=== PATIENT | male | born 1950 | race Caucasian/White ===

== ENCOUNTER 2021-08-23 16:54 | Observation (INO) | payer BC, SELFPAY ==
[2021-08-23] VITALS (32 sets, daily range): BP systolic 112–164; BP diastolic 58–76; PULSE 55–86; RESP 6–19; TEMP 36.6–36.8; O2SAT 95–100; BMI 31.2
--- NOTE | ~2021-08-23 | XR_ITS ---
EXAMINATION: XR chest 2V DATE: 08/23/2021 17:14 INDICATION: Generalized chest pain radiating to the neck TECHNIQUE: PA and lateral views of the chest are obtained. COMPARISON: None available FINDINGS: The lungs are free of acute opacities. There is no pleural effusion or pneumothorax. The ca rdiomediastinal silhouette is normal. There is mild thoracic spondylosis. IMPRESSION: 1. No acute cardiopulmonary abnormality. Reviewed, dictated and finalized at location F.
--- NOTE | 2021-08-23 16:57 | ECG_ITS ---
Measurements Intervals [place] Rate: 73 P: 48 MN: 189 QRS: 14 QRSD: 99 T: 21 QT: 390 QTc: 430 Interpretive Statements SINUS RHYTHM WITH SINUS ARRHYTHMIA WITHIN NORMAL LIMITS NO PREVIOUS ECG AVAILABLE FOR COMPARISON Electronically Signed On 08-24-2021 16:36:56 CDT by Kyle Muniz M.D.
--- NOTE | 2021-08-23 17:12 | ED.CHESTPAIN ---
HPI - Chest Pain General Chief Complaint: Chest Pain Stated Complaint: out of sorts, jaw pain Time Seen by Provider: 08/23/21 17:12 History of Present Illness HPI narrative: Patient is a 70-year-old male with history of hypertension, hyperlipidemia presenting to the emergency department for evaluation of chest pain and jaw pain. Patient states that while at work today, he noticed increasing chest pressure over the center of his chest with radiation into the lower jaw area, both sides of his jaw. He reports associated shortness of breath in conjunction with the pain, denies any nausea, vomiting, palpitations, diaphoresis. Patient denies any lightheadedness or dizziness. 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 Patient is a lifelong smoker. His father had a heart attack in his 50s. Patient has no previous history of myocardial infarction. He denies any cough or hemoptysis. He denies leg swelling or calf pain. Patient denies history of stress test in the past. He has been compliant with his medication which includes lisinopril, hydrochlorothiazide. Related Data Home Medications Medication Instructions Recorded Confirmed atorvastatin 40 mg tablet tablet 08/23/21 hydrochlorothiazide 50 mg tablet tablet 08/23/21 lisinopril 10 mg tablet tablet 08/23/21 08/23/21 Allergies Allergy/AdvReac Type Severity Reaction Status Date / Time No Known Allergies Allergy Verified 08/23/21 17:31 Review of Systems Review of Systems: CONSTITUTIONAL: Denies fever, chills, or sweats. ENT: Denies rhinorrhea, congestion, sore throat, or otalgia. CARDIOVASCULAR: Reports chest pain, denies palpitations, edema RESPIRATORY: Denies cough or dyspnea. Denies current dyspnea. GASTROINTESTINAL: Denies abdominal pain, nausea, vomiting, or diarrhea. GENITOURINARY: Denies dysuria or hematuria. SKIN: Denies rash or itching. MUSCULOSKELETAL: Denies back pain, joint pain, or myalgia. NEUROLOGIC: Denies headache, numbness, or weakness. [facility] Social History Social History (Updated 08/23/21 @ 17:31 by Starr Mcgill MD) Smoking status: Current every day smoker Alcohol intake: never Substance use: never Gender identity (if verbalized by the patient): Male Exam Narrative: GENERAL: Awake, alert, conversant HEAD: Normocephalic, atraumatic. EYES: PERRLA and EOMI. ENT: Nares clear, no rhinorrhea or epistaxis. Mucous membranes moist. NECK: Supple. CHEST: No respiratory distress, breathing even and non labored, no chest wall tenderness HEART: Regular rate, sinus rhythm ABDOMEN:Non distended, non tender EXTREMITIES: Normal range of motion. No edema. SKIN: Warm, dry, no rash. NEURO:No focal deficits. Alert and oriented x3 Course Vital Signs Vital signs: Vital Signs Temperature 36.8 C 08/23/21 16:58 Pulse Rate 75 08/23/21 16:58 Respiratory Rate 14 08/23/21 16:58 Blood Pressure 164/72 H 08/23/21 16:58 Pulse Oximetry 100 08/23/21 16:58 Temperature 36.8 C 08/23/21 16:58 Pulse Rate 71 08/23/21 17:03 Respiratory Rate 14 08/23/21 16:58 Blood Pressure 164/72 H 08/23/21 16:58 Pulse Oximetry 100 08/23/21 16:58 MDM - Chest Pain MDM Narrative Medical decision making narrative: Patient presenting for evaluation of intermittent chest pain radiating to both sides of the patient's jaw with associated dyspnea. Chest pain is present, but mild at the time of assessment. Patient with significant history and risk factors concerning for unstable angina. IV access obtained and labs are drawn. Patient was given aspirin, and pain resolved after administration of sublingual nitroglycerin. Patient with first troponin that is not elevated. Other labs are notable for mild anemia. Patient without ripping or tearing sensation to the left leg, back, does not seem consistent with PE or vascular pathology. Patient was given a dose of Lovenox in the ER after di
[2021-08-23 17:16] LABS: Basophils Percent Auto 0.4 % (0.2-1.2); Eosinophils Absolute Auto 0.2 K/mm3 (0-0.3); Eosinophils Percent Auto 1.8 % (0-4.4); Hematocrit 39.7 % (42.0-52.0); Hemoglobin 12.9 g/dL (14.0-18.0); Immature Granulocyte Percent A 1.1 % (0-0.5); Lymphocytes Absolute Auto 2.02 K/mm3 (0.9-3.2); Lymphocytes Percent Auto 22.2 % (18.3-44.2); Mean Corpuscular HGB Conc 32.5 g/dl (32-36); Mean Corpuscular Hemoglobin 30.1 pg (26-34); Mean Corpuscular Volume 92.5 fl (80-100); Mean Platelet Volume 8.8 fl (7.4-10.4); Monocytes Absolute Auto 0.9 K/mm3 (0.1-0.6); Monocytes Percent Auto 10.3 % (2.6-8.5); Neutrophils Absolute Auto 5.8 K/mm3 (1.3-6.7); Neutrophils Percent Auto 64.2 % (45.5-73.1); Platelet Count Result 299 k/mm3 (150-375); Red Blood Count 4.29 M/mm3 (4.6-6.20); Red Cell Distribution Width 13.7 % (11.5-14.5); White Blood Count 9.1 K/mm3 (4.5-10.0)
[2021-08-23 17:28] LABS: Partial Thromboplastin Time 24.1 SECONDS (22.3-36.8); Prothrombin Time 12.5 Seconds (11.1-14.7)
[2021-08-23 17:31] LABS: Alanine Aminotransferase 30 U/L (6-50); Albumin Level 4.5 g/dL (3.5-5.1); Alkaline Phosphatase 63 U/L (38-126); Anion Gap 8 mmol/L (8-16); Aspartate Amino Transferase 32 U/L (17-59); Bilirubin,Total 0.2 mg/dL (0.2-1.3); Blood Urea Nitrogen 19 mg/dL (9-20); Calcium 9.4 mg/dL (8.4-10.2); Carbon Dioxide 30 mmol/L (22-30); Chloride 98 mmol/L (98-107); Estimated CRCL calculation 75 ml/min; Estimated Glomerular Filt Rate > 60; Glucose 151 mg/dL (65-110); Lipase 80 U/L (23-300); Potassium 3.6 mmol/L (3.4-5.0); Sodium 136 mmol/L (137-145)
[2021-08-23] MEDS: NITROGLYCERIN SL 0.4 MG TABLET SUBLINGUAL (17:41)
[2021-08-23 17:42] LABS: Troponin I < 0.012 ng/mL (0.000-0.034)
[2021-08-23] MEDS: ASPIRIN 81 MG CHEWABLE TABLET 324 MG PO (17:42)
[2021-08-23] MEDS: ENOXAPARIN 100 MG/ML SYRINGE SUB-Q (18:52)
--- NOTE | 2021-08-23 19:15 | PM.IMHP ---
H&P: HPI History of Present Illness Date/Time: 08/23/21 19:15 Chief Complaint: Chest pain. Narrative: This is a very pleasant 70-year-old male smoker with hypertension hyperlipidemia who presented to the emergency department from home for evaluation of chest pain. He played 9 holes of golf yesterday and felt just fine. Upon waking this morning he had some discomfort in the left side of his jaw however he attributed that to the fact that he typically sleeps with his head resting on his hand. While getting ready for work he had aching in both jaws but that resolved quickly. 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 These symptoms improved with rest and intermittently recurred when up walking. Initially he thought perhaps his symptoms were related to GERD however Tums were of no benefit and he came in for evaluation. Troponin has been negative x2 and his EKG does not show any ST segment deviation. Given his personal and family history (father had an TN in his early 50s) he is being admitted for further evaluation. Currently he is without chest discomfort. Review of Systems Review of Systems: Twelve systems were reviewed. No fever, chills, or sweats. No recent cold or flu symptoms. No nausea or vomiting. No diarrhea. No blood in his stools. Except as documented, all other systems were reviewed and are negative. [facility] Past Medical History Medical History Gastroesophageal reflux disease Hyperlipidemia Hypertension Tobacco use Surgical History Surgical History No history of previous surgery Family History Family History (Updated 08/23/21 @ 23:27 by Rosita Garg PA-C) Mother Cerebrovascular accident Heart disease Father Myocardial infarction Congestive heart failure Social History Social History (Updated 08/23/21 @ 23:28 by Rosita Garg PA-C) Social History: Surrogate decision maker: Lisette Harveycher, spouse. Code status: Full code. Smoking packs per day: 0.5 Smoking cigarettes per day: 10.0 Years smoked: 27 Smoking pack-years: 13.50 Smoking status: Current every day smoker Tobacco type: cigarettes and cigars Second hand tobacco smoke exposure: No Additional smoking assessment comments: A few cigars and cigarettes a day. Alcohol intake: current Drinks per week: 12 Alcohol use details: Two beers most evenings. 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 Spiritual care concerns: No Meds Home Medications and Allergies Home Medications Medication Instructions Recorded Confirmed Type atorvastatin 40 mg tablet 1 tablet PO DAILY 08/23/21 08/23/21 History hydrochlorothiazide 50 mg tablet 1 tablet PO DAILY 08/23/21 08/23/21 History lisinopril 10 mg tablet 1 tablet PO DAILY 08/23/21 08/23/21 History Allergies Allergy/AdvReac Type Severity Reaction Status Date / Time No Known Allergies Allergy Verified 08/23/21 17:31 Vital Signs Vital Signs - 24 hr 08/23/21 16:58 08/23/21 17:03 08/23/21 16:59 Temperature 98.2 F Pulse Rate 75 71 77 Respiratory Rate 14 6 L Blood Pressure 164/72 H Pulse Oximetry 100 99 Oxygen Delivery 08/23/21 17:00 08/23/21 17:01 08/23/21 17:15 Temperature Pulse Rate 74 70 70 Respiratory Rate 13 13 15 Blood Pressure 164/72 H Pulse Oximetry 98 99 97 Oxygen Delivery 08/23/21 17:30 08/23/21 17:45 08/23/21 17:46 Temperature Pulse Rate 68 68 68 Respiratory Rate 13 16 14 Blood Pressure 126/70 Pulse Oximetry 95 97 95 Oxygen Delivery 08/23/21 18:00 08/23/21 18:01 08/23/21 18:15 Temperature Pulse Rate 66 69 65 Respiratory Rate 14 19 14 Blood Pressure 128/62 Pulse Oximetry
[2021-08-23 20:53] LABS: Troponin I < 0.012 ng/mL (0.000-0.034)
--- NOTE | 2021-08-23 22:47 | ADMGEN ---
This patient, Dae Ma, was admitted to IMU Room 211-01. Patient/family oriented to hospital policies and general routines including ID bracelet, bed and alarms, visiting hours, pain management, procedures, bathroom and other care routines, personal items, smoking policy, room service/diet, and visiting hours. Information on how to activate the Rapid Response Team has been discussed. Patient/Family are encouraged to report perceived risks to care and to ask questions if they do not understand what they are told or what they should do.
[2021-08-23 23:31] LABS: Troponin I < 0.012 ng/mL (0.000-0.034)
[2021-08-24] VITALS (9 sets, daily range): BP systolic 104–118; BP diastolic 51–59; PULSE 58–76; RESP 16–18; TEMP 36.6–37.2; O2SAT 97–100
--- NOTE | 2021-08-24 | ECHO_ITS ---
Patient Info Name: Dae Ma Age: 70 years : 1950 Gender: Male Ht: 71 in Wt: 225 lbs BSA: 2.29 m2 HR: 60 bpm BP: 118 / 51 mmHg Heart Rhythm: Sinus Rhythm Technical Quality: Good Exam Date: 08/24/2021 11:42 AM Exam Location: [facility] Pulmonary Patient Status: Inpatient Admit Date: 08/23/2021 Staff Ordering Physician: Bill Carmen Rotary Swaging Machine Operator: Chiquita Strickland RDCS Attending Provider: Tacho Nuñez MD Referring Physician: Kermit LUX; Exam Type: CA echo doppler color flow Study Info Indications - CHEST XRAY Complete two-dimensional, color flow and Doppler transthoracic echocardiogram is performed. Summary 1. Complete two-dimensional, color flow and Doppler transthoracic echocardiogram is performed. 2. Left ventricular systolic function is normal, estimated at 55-60%. 3. Left ventricular chamber dimension is normal. 4. There is mild aortic valve sclerosis. Left Ventricle Left ventricular chamber dimension is normal. Left ventricular systolic function is normal, estimated at 55-60%. The left ventricular diastolic function is normal. Right Ventricle Right ventricular chamber dimension is normal. Left Atria Left atrial chamber dimension is mildly enlarged. Right Atria Right atrial chamber dimension is normal. Aortic Valve The aortic valve is trileaflet. There is mild aortic valve sclerosis. Pulmonic Valve The pulmonic valve is normal. Mitral Valve The mitral valve has normal leaflets. Tricuspid Valve The tricuspid valve leaflets are normal. Pericardium/Pleural The pericardium appears normal. Aorta The aortic root size at the sinus of Valsalva is normal. Left Ventricular Outflow Tract Name Value Normal LVOT 2D LVOT Diameter 2.0 cm LVOT Doppler LVOT Peak Gradient 5 mmHg LVOT Mean Gradient 3 mmHg LVOT VTI 26 cm LVOT VTI/AV VTI Ratio 1.0 LVOT Stroke Volume 79 ml LVOT CO 4.5 l/min LVOT CI 2.0 l/min/m2 Pulmonic Valve Name Value Normal RVOT Doppler RVOT Peak Gradient 2 mmHg PV Doppler PV Peak Gradient 5 mmHg Mitral Valve Name Value Normal MV Doppler MV Decel [place] 313 cm/s2 MV PHT 77 ms MV Area (PHT) 2.9 cm2 4.0-5.0
[2021-08-24] MEDS: METOPROLOL TARTRATE 25 MG TABLET PO (02:21)
[2021-08-24 04:40] LABS: Hematocrit 36.3 % (42.0-52.0); Hemoglobin 12.3 g/dL (14.0-18.0); Mean Corpuscular HGB Conc 33.9 g/dl (32-36); Mean Corpuscular Hemoglobin 31.1 pg (26-34); Mean Corpuscular Volume 91.7 fl (80-100); Mean Platelet Volume 8.8 fl (7.4-10.4); Platelet Count Result 272 k/mm3 (150-375); Red Blood Count 3.96 M/mm3 (4.6-6.20); Red Cell Distribution Width 13.4 % (11.5-14.5); White Blood Count 8.2 K/mm3 (4.5-10.0)
[2021-08-24 04:45] LABS: Hemoglobin A1C 5.7 % (<5.7)
[2021-08-24 04:49] LABS: Anion Gap 4 mmol/L (8-16); Blood Urea Nitrogen 17 mg/dL (9-20); Calcium 8.9 mg/dL (8.4-10.2); Carbon Dioxide 30 mmol/L (22-30); Chloride 101 mmol/L (98-107); Estimated CRCL calculation 92 ml/min; Estimated Glomerular Filt Rate > 60; Glucose 102 mg/dL (65-110); Magnesium 1.9 mg/dL (1.6-2.3); Potassium 3.6 mmol/L (3.4-5.0); Sodium 135 mmol/L (137-145)
[2021-08-24] MEDS: ENOXAPARIN 100 MG/ML SYRINGE SUB-Q (06:17)
--- NOTE | 2021-08-24 08:45 | PM.DS ---
DS: Admitting Diagnosis Discharge Date 08/24/21 0845 Admitting Diagnosis Angina DS: Discharge Diagnosis Discharge Diagnosis (1) Chest pain: Code(s): R07.9 - Chest pain, unspecified Status: Acute Assessment and Plan: History is concerning for angina. Patient was given aspirin 325 mg x 1 in the emergency department and he was also started on Lovenox 1 milligram/kilogram b.i.d.. Will give a dose of metoprolol tartrate 25 mg x 1 this evening. He will be NPO after midnight for possible cardiac catheterization tomorrow. Cardiology input is appreciated. (2) Hypertension: Code(s): I10 - Essential (primary) hypertension Status: Acute Assessment and Plan: Blood pressures were reviewed and they are well controlled. Continue antihypertensives and monitor daily. (3) Hyperlipidemia: Code(s): E78.5 - Hyperlipidemia, unspecified Status: Acute Assessment and Plan: Continue statin; LFTs within normal limits. (4) Tobacco use: Code(s): Z72.0 - Tobacco use Status: Acute Assessment and Plan: Smoking cessation is imperative and was discussed. He declines the need for nicotine patch. (5) Hyperglycemia: Code(s): R73.9 - Hyperglycemia, unspecified Status: Acute Assessment and Plan: Check fasting glucose and hemoglobin A1c. DS: Summary Hospital Course Hospital Course: The patient is a very pleasant 70-year-old male who has a history of hypertension, hyperlipidemia, and smoker who presented to ED with chest pain. Patient stated that he was having intermittent chest pain and jaw pain which were relieved with rest. Patient did think at 1 time that it was indigestion and was trying times however did not work. EKG was normal troponins were negative x3. Patient was seen by Cardiology who is going to have the patient follow up with an outpatient stress test. Echocardiogram was performed. Labs and vital signs remained stable at this time. Patient is stable for discharge. Patient denies any chest pain, shortness of breath, nausea, vomiting, diarrhea, constipation, weakness or fatigue. The cardiology group will set him up with outpatient testing. Status at Discharge Functional status at discharge: independent ambulation Overall status at discharge: patient is progressing back to baseline Time Spent with Patient Time attestation: Total time spent providing and/or coordinating discharge services: 36 minutes Time spent: Greater than 30 minutes Exam Const: General: cooperative, healthy appearing, no acute distress, well developed, alert and awake Nutritional Appearance: well nourished Orientation/consciousness: patient oriented x3 Limitations: no limitations HENMT: Head: normal to inspection Ears: hearing grossly normal bilaterally General nose exam: Normal external nose present Mouth: Yes Normal oral and palatal mucosa present, Yes lip normal and Yes tongue normal Teeth and gingiva: abnormal tooth and associated gingiva and poor dentition Eyes: General: appearance normal, both eyes and all related structures Neck: Neck: normal visual inspection, full ROM, trachea midline and supple Chest: Chest palpation & inspection: normal inspection of the chest Resp: Effort & Inspection: normal respiratory effort and able to speak in complete sentences Auscultation: clear to auscultation bilaterally Cardio: Jugular venous distension: no JVD Rate: regular rate Rhythm: regular rhythm Heart sounds: S1 normal heart sound present and S2 normal heart sound present Peripheral pulses: Peripheral pulses 2+ throughout GI: Inspection: normal to inspection GI Palp: Yes Soft to palpation and No Tenderness to palpation present (GI) Auscultation: normal bowel sounds Skin: General skin exam: normal color and no rashes or lesions noted Lesions: no lesions Rashes: no rashes Trauma: no lacerations or abrasions Wounds: no wounds Hair: normal Nails: normal N
[2021-08-24] MEDS: hydroCHLOROthiazide 25 MG TABLET 50 MG PO (09:33)
[2021-08-24] MEDS: ATORVASTATIN 40 MG TABLET PO (09:33)
[2021-08-24] MEDS: ASPIRIN 81 MG ENTERIC TABLET PO (09:33)
[2021-08-24] MEDS: lisinopriL 10 MG TABLET PO (09:33)
--- NOTE | 2021-08-24 12:54 | PM.CNCAR ---
Assessment and Plan Assessment and plan (1) Chest pain: Code(s): R07.9 - Chest pain, unspecified Status: Acute Plan This is a 70-year-old man who was admitted because of jaw pain and chest symptoms that are detailed above that created concerned he came into the emergency room yesterday evening. He feels fine now. There is no evidence of an acute coronary syndrome by the appearance of his ECG and troponin levels. He feels fine at this point because of his risk factors this does merit further investigation with stress testing. Stress testing in the hospital versus outpatient stress testing were offered to the patient. It is his preference to be discharged and have an outpatient examination which I told was fine since his biomarkers are negative. I will arrange a stress echocardiogram in my office and further recommendations will be forthcoming after that examination occurs. From my perspective he can be discharged at this time Kyle Muniz MD [facility] History of Present Illness History of Present Illness Consult date/time: 08/24/21 12:54 Consult reason: chest pain Reason For Visit: Unstable angina Narrative: This is a pleasant 70-year-old man I am seeing today at the request of the hospitalist because of some jaw and chest pain that he experienced yesterday I created concern he was seen in the emergency room and then admitted to the hospital. He is not known to have any cardiac problems prior to this. He says that yesterday morning when he got up from bed from a long restful night's sleep he did feel well he was having some pain in the left side of his jaw that he thought was due to sleeping in a funny position. A little later he had pain in both sides of the jaw and then after that he had what he describes as a funny sensation in the center of his chest. The symptoms waxed and waned through the day. They never became severe there was no associated nausea vomiting diaphoresis or air hunger. The pain did radiate to any other location. Normally he states he does not have any exertional symptomatology but yesterday he did notice that walking seem to make this discomfort worse. He was evaluated in the emergency room later in the day where he decided to come in because of the symptoms. His ER evaluation was negative his electrocardiogram and troponin levels were normal. Since being admitted in the IMU he has been asymptomatic. All of his troponin levels are negative. He says he feels fine today. He does have have hypertension and dyslipidemia being treated medically. He does have a history of cigarette smoking as well as a family history of coronary disease in his father. Review of Systems Constitutional: Constitutional: Reports no additional constitutional complaints Eyes: Eyes: Reports no additional eye complaints ENT: Reports system reviewed and no additional complaints, except as documented Cardiovascular: Cardiovascular: Reports as per HPI Respiratory: Respiratory: Reports no additional respiratory complaints Gastrointestinal: Gastrointestinal: Reports no additional gastrointestinal complaints Musculoskeletal: Musculoskeletal: Reports back pain Integumentary/Breasts: Skin/Breast: Reports system reviewed and no additional complaints, except as docu Neurologic: Reports system reviewed and no additional complaints, except as documented Endocrine: Endocrine: Reports no additional endocrine complaints Hematologic/Lymphatic: Hematologic/Lymphatic: Reports no additional hematologic/lymphatic complaints Allergic/Immunologic: Allergic/Immunologic: Reports no additional allergic/immunologic complaints [facility] Past Medical History Medical History Gastroesophageal reflux disease Hyperlipidemia Hypertension Tobacco use Surgical History Surgical History No history of previous surgery Family History Family History (Updated 08/23/21 @ 23:27 by
== END 2021-08-24 13:58 | disposition home or self-care (01) ==
LOC: ANHED 18:02 → ANHIMU 22:00
PROVIDERS: Emergency Medicine; Physician Assistant; Admitting Provider Family Medicine; Emergency Provider Emergency Medicine; PCP Internal Medicine; Visit Provider Nurse Practitioner
DX: R07.9 Chest pain, unspecified (principal); R06.02 Shortness of breath; I10 Essential (primary) hypertension; E78.5 Hyperlipidemia, unspecified; I35.8 Other nonrheumatic aortic valve disorders; R73.9 Hyperglycemia, unspecified; K21.9 Gastro-esophageal reflux disease without esophagitis; F17.210 Nicotine dependence, cigarettes, uncomplicated; F17.290 Nicotine dependence, other tobacco product, uncomplicated
CPT/HCPCS: 36415; 71046; 80048; 80053; 83036; 83690; 83735; 84484; 85025; 85027; 85610; 85730; 93005; 93306; 96372; 99285; A9270; G0378; J1650

== ENCOUNTER 2022-08-07 00:44 | Day surgery (SDC) | payer BC, SELFPAY ==
[2022-07-31 13:54] VITALS: BMI 30.4
--- NOTE | 2022-08-06 11:24 | P.HP_ITS ---
History of Present Illness History of Present Illness Consent: Risks, benefits, and alternatives have been discussed and questions answered. Patient agrees to proceed with procedure. Chief complaint: hx colon polyps Narrative: Dae Ma is a 71 year old male referred for colon cancer screening. About 6 years ago he had a colonoscopy was removal of a flat 2.5 cm diameter polyp from the cecum which was a tubular adenoma. Review of Systems Review of Systems: All systems reviewed & are unremarkable except as noted in HPI and below PMFSH Past Medical History Medical History Gastroesophageal reflux disease Hyperlipidemia Hypertension Tobacco use Surgical History Surgical History No history of previous surgery Family History Family History Mother Cerebrovascular accident Heart disease Father Myocardial infarction Congestive heart failure Social History Social History (Updated 08/23/21 @ 23:28 by Rosita Garg PA-C) Social History: Surrogate decision maker: Lisette Ma, spouse. Code status: Full code. Smoking packs per day: 1 Smoking cigarettes per day: 20.0 Years smoked: 7 Smoking pack-years: 7.00 Smoking status: Current every day smoker Tobacco type: cigarettes Second hand tobacco smoke exposure: No Additional smoking assessment comments: A few cigars and cigarettes a day. 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 Spiritual care concerns: No Meds Home Medications and Allergies Home Medications Medication Instructions Recorded Confirmed Type atorvastatin 40 mg tablet 1 tablet PO DAILY 08/23/21 08/07/22 History hydrochlorothiazide 50 mg tablet 1 tablet PO DAILY 08/23/21 08/07/22 History lisinopril 10 mg tablet 1 tablet PO DAILY 08/23/21 08/07/22 History Allergies Allergy/AdvReac Type Severity Reaction Status Date / Time No Known Allergies Allergy Verified 08/07/22 07:08 Exam Const: General: alert Orientation/consciousness: patient oriented x3 Resp: Auscultation: clear to auscultation bilaterally Cardio: Rhythm: regular rhythm GI: GI Palp: Yes Soft to palpation and No Tenderness to palpation present (GI) Neuro: General: patient oriented x3 Assessment and Plan Assessment and plan (1) Colon cancer screening: Code(s): Z12.11 - Encounter for screening for malignant neoplasm of colon Status: Acute Assessment and Plan: Colonoscopy with possible biopsy or polypectomy or cautery or injection of substances.
[2022-08-07 06:53] VITALS: BP 136/65; PULSE 73; RESP 18; TEMP 36.2; O2SAT 96
[2022-08-07] MEDS: LACTATED RINGERS 1,000 ML 150 ML IV CONT (07:06)
--- NOTE | 2022-08-07 07:27 | P.PNAN_ITS ---
Anes - Initial Pre Proc Eval Procedure: Operation Date: 08/07/22 08:00 Proposed Procedures p Colonoscopy - John Suarez MD Date/Time: 08/07/22 07:27 Surgeon: John Suarez MD Pre Op Diagnosis: hx colon polyps Patient Data Age: 71 Gender: M Height: 1.83 m Weight: 104.3 kg Last Vital Signs Temp 36.2 C L 08/07/22 06:53 Pulse 73 08/07/22 06:53 Resp 18 08/07/22 06:53 BP 136/65 08/07/22 06:53 Pulse Ox 96 08/07/22 06:53 O2 Del Method Room Air 08/07/22 06:53 Allergies Allergy/AdvReac Type Severity Reaction Status Date / Time No Known Allergies Allergy Verified 08/07/22 07:08 Home Medications Medication Instructions Recorded Confirmed Type atorvastatin 40 mg tablet 1 tablet PO DAILY 08/23/21 08/07/22 History hydrochlorothiazide 50 mg tablet 1 tablet PO DAILY 08/23/21 08/07/22 History lisinopril 10 mg tablet 1 tablet PO DAILY 08/23/21 08/07/22 History Patient hx anesthesia problems: none Family hx anesthesia problems: none Results Review: All pre-operative results and documents have been reviewed as part of the pre- operative evaluation. [facility] Past Medical History Medical History Gastroesophageal reflux disease Hyperlipidemia Hypertension Tobacco use Surgical History Surgical History No history of previous surgery Family History Family History (Updated 08/23/21 @ 23:27 by Rosita Garg PA-C) Mother Cerebrovascular accident Heart disease Father Myocardial infarction Congestive heart failure Social History Social History (Updated 08/23/21 @ 23:28 by Rosita Garg PA-C) Social History: Surrogate decision maker: Lisette Peacher, spouse. Code status: Full code. Smoking packs per day: 1 Smoking cigarettes per day: 20.0 Years smoked: 7 Smoking pack-years: 7.00 Smoking status: Current every day smoker Tobacco type: cigarettes Second hand tobacco smoke exposure: No Additional smoking assessment comments: A few cigars and cigarettes a day. Alcohol intake: current Drinks per week: 21 Alcohol use details: 2-3 drinks a day Substance use: never Substance use type: does not use Living arrangements: with family Additional occupation/education comments: [employer] at [employer]. Spiritual care concerns: No Anes - Eval Final PreProcedure Day of Procedure 08/07/22 07:27 Patient weight: obese Heart: regular rate and rhythm Lungs: clear to auscultation and normal air movement Airway: Mallampati scale class II Neurological: alert and oriented Last oral intake: >/= 8 hours ASA classification: III Emergent: no Anesthetic plan: proceed Anesthesia type and monitoring: general GIVS Results Review: All pre-operative results and documents have been reviewed as part of the pre- operative evaluation. Informed Consent: The patient's anesthetic plan and its attendant risks and benefits were discussed with the patient/family/POA. Questions were solicited and answers provided to the satisfaction of the patient/family/POA.
[2022-08-07 08:14] VITALS: BP 125/82; PULSE 77; RESP 13; O2SAT 95
[2022-08-07 08:24] VITALS: BP 130/73; PULSE 70; RESP 18; O2SAT 97
[2022-08-07 08:34] VITALS: BP 124/85; PULSE 72; RESP 18; O2SAT 97
== END 2022-08-07 08:45 | disposition home or self-care (01) ==
PROVIDERS: PCP Internal Medicine; Visit Provider Internal Medicine Gastroenterology
PROC: 0DJD8ZZ Inspection of Lower Intestinal Tract, Via Natural or Artificial Opening Endoscopic (ICD-10-PCS; CPT 45378; principal; 2022-08-07 08:00)
DX: Z12.11 Encounter for screening for malignant neoplasm of colon (principal); K57.30 Diverticulosis of large intestine without perforation or abscess without bleeding; D12.4 Benign neoplasm of descending colon; I10 Essential (primary) hypertension; E78.5 Hyperlipidemia, unspecified; K21.9 Gastro-esophageal reflux disease without esophagitis; F17.210 Nicotine dependence, cigarettes, uncomplicated; E66.9 Obesity, unspecified; Z68.31 Body mass index [BMI] 31.0-31.9, adult
CPT/HCPCS: 45385; 88305; J2001; J2704; J7120